=== PATIENT | female | born 1945 | race Caucasian/White ===

== ENCOUNTER 2016-08-10 13:25 | Inpatient (IN) | payer OTHER ==
[2016-08-10 14:56] LABS: BASOPHIL 0.2 % (0-2); HCT 34.7 % (37.0-47.0); HGB 11.3 g/dl (12.5-16.0); LYMPHOCYTE 16.6 % (15-48); MCH 28.8 pg (25.0-31.0); MCHC 32.6 g/dL (32.0-36.0); MCV 88.3 fL (78.0-100.0); MONOCYTE 11.9 % (0-12); MPV 10.4 fL (6.0-9.5); NEUTROPHIL 69.3 % (41-80); PLT 264 K/uL (150-400); RBC 3.93 M/uL (4.20-5.40); RDW 14.1 % (11.5-14.0); WBC 5.5 K/uL (4.0-10.5)
[2016-08-10 15:05] LABS: ALBUMIN 3.3 g/dL (3.4-4.8); BILIRUBIN - TOTAL 0.3 mg/dL (0.1-1.0); CREATININE 1.1 mg/dL (0.5-1.0); GLOBULIN (CALCULATION) 3.4 g/dL (2.2-4.2); POTASSIUM 4.9 mmol/L (3.5-5.1); TOTAL PROTEIN 6.7 g/dL (6.4-8.3)
[2016-08-10 16:45] LABS: BILIRUBIN NEGATIVE (NEGATIVE); BLOOD NEGATIVE Ery/uL (NEGATIVE); CLARITY CLEAR (CLEAR); COLOR YELLOW (YELLOW); GLUCOSE (U) NORMAL (NORMAL); KETONE (U) NEGATIVE (NEGATIVE); LEUKOCYTES NEGATIVE Leu/uL (NEGATIVE); NITRITE NEGATIVE (NEGATIVE); PROTEIN NEGATIVE (NEGATIVE); SPECIFIC GRAVITY <=1.005 (1.001-1.030); UROBILINOGEN 0.2 mg/dL (0.2-1.0)
[2016-08-11 14:02] LABS: FOLIC ACID (SERUM) > 20.0 ng/mL (5.6-45.8)
[2016-08-13 04:55] LABS: HCT 33.5 % (37.0-47.0); HGB 10.6 g/dl (12.5-16.0); MCH 28.3 pg (25.0-31.0); MCHC 31.6 g/dL (32.0-36.0); MCV 89.6 fL (78.0-100.0); MPV 10.2 fL (6.0-9.5); RBC 3.74 M/uL (4.20-5.40); RDW 13.9 % (11.5-14.0); WBC 5.1 K/uL (4.0-10.5)
[2016-08-13 05:16] LABS: CREATININE 1.4 mg/dL (0.5-1.0)
== END 2016-08-14 16:18 | disposition other institution (70) | DRG 300 ==
LOC: FER 13:25 → FMS 16:40
PROVIDERS: Internal Medicine; ADMIT Internal Medicine
DX: I83.222 Varicose veins of left lower extremity with both ulcer of calf and inflammation (principal); L97.229 Non-pressure chronic ulcer of left calf with unspecified severity; E87.2 Acidosis; L03.116 Cellulitis of left lower limb; I73.9 Peripheral vascular disease, unspecified; B95.62 Methicillin resistant Staphylococcus aureus infection as the cause of diseases classified elsewhere; B96.5 Pseudomonas (aeruginosa) (mallei) (pseudomallei) as the cause of diseases classified elsewhere; D63.8 Anemia in other chronic diseases classified elsewhere
CPT/HCPCS: 36415; 73590; 80048; 80053; 80202; 81003; 82607; 82728; 82746; 83540; 83605; 85025; 85651; 86140; 86403; 87040; 87070; 87077; 87186; 87205; J2270; J2405; J2543; J3370